=== PATIENT | female | born 1975 | race Caucasian/White ===

== ENCOUNTER 2016-10-05 22:21 | Emergency (ER) | payer BC ==
[2016-10-05] MEDS ORDERED: HYDROmorphone 1 MG/ML 1 ML SYRINGE IVP STA (23:12)
[2016-10-05] MEDS ORDERED: SODIUM CHLORIDE 0.9% 1,000 ML IV ONE (23:12)
[2016-10-05] MEDS ORDERED: KETOROLAC 30 MG/ML 1 ML VIAL IVP STA (23:13)
[2016-10-05] MEDS ORDERED: ONDANSETRON 4 MG/2 ML VIAL IVP STA (23:13)
--- NOTE | 2016-10-05 23:19 | ED ---
Abdominal Pain HPI - General Chief Complaint: Abdominal Pain Stated Complaint: flank pain Time Seen by Provider: 10/05/16 22:42 Source: patient, RN notes reviewed Mode of arrival: wheelchair Limitations: no limitations - History of Present Illness Initial Comments: Patient is a 41-year-old female presents to the emergency room for evaluation of right upper quadrant/right flank pain. Patient states pain began today. Patient's pain has been getting worse throughout the day. Patient states she can't even take a deep breath without significant pain. Patient states she has never had pain like this before. Patient states she has a history of cholecystectomy and 2 sections. Patient denies history of kidney stones. Patient denies pain or burning during urination, trouble urinating or blood in urine. Patient states she's been nauseous and vomited twice. Patient denies headache or dizziness. Patient denies fevers or chills. - Related Data Home Medications Medication Instructions Recorded Confirmed Dextroamphetamine/Amphetamine 30 mg PO DAILY PRN 10/05/16 10/05/16 [Adderall] Ranitidine HCl 300 mg PO DAILY 10/05/16 10/05/16 Previous Rx's Medication Instructions Recorded HYDROcodone/APAP 5-325MG [Magnolia 1 tab PO Q6HR PRN #15 tab 10/06/16 5-325] Ondansetron Odt [Zofran Odt] 4 mg PO Q8HR PRN #12 tab 10/06/16 Allergies Allergy/AdvReac Type Severity Reaction Status Date / Time Penicillins Allergy Rash/Hives Verified 10/05/16 22:31 Review of Systems ROS Statement: Those systems with pertinent positive or pertinent negative responses have been documented in the HPI. ROS Other: All systems not noted in ROS Statement are negative. Past Medical History Past Medical History: GERD/Reflux History of Any Multi-Drug Resistant Organisms: None Reported Past Surgical History: Section, Cholecystectomy, Hysterectomy Past Psychological History: ADD/ADHD Smoking Status: Former smoker Past Alcohol Use History: Occasional Past Drug Use History: None Reported General Exam - General Exam Comments Initial Comments: Sitting in exam room, tearful and anxious secondary to pain Limitations: no limitations General appearance: alert, in no apparent distress Head exam: Present: atraumatic, normocephalic, normal inspection Eye exam: Present: normal appearance ENT exam: Present: normal exam Neck exam: Present: normal inspection Respiratory exam: Present: normal lung sounds bilaterally. Absent: respiratory distress Cardiovascular Exam: Present: regular rate, normal rhythm, normal heart sounds GI/Abdominal exam: Present: soft, tenderness (RUQ), guarding (Voluntary guarding on palpating of her right upper quadrant), normal bowel sounds. Absent : distended, rebound, rigid Extremities exam: Present: normal inspection Back exam: Present: normal inspection, full ROM, CVA tenderness (R). Absent: CVA tenderness (L) Neurological exam: Present: alert, oriented X3, CN II-XII intact, normal gait Psychiatric exam: Present: normal affect, anxious Skin exam: Present: warm, dry, intact, normal color. Absent: rash Course Vital Signs 10/05/16 10/05/16 10/06/16 22:28 23:23 00:17 Temperature 98.0 F 97.5 F L 97.5 F L Pulse Rate 84 81 71 Respiratory 18 20 16 Rate Blood Pressure 149/70 125/69 106/61 O2 Sat by Pulse 100 100 100 Oximetry 10/06/16 10/06/16 01:12 01:46 Temperature 97.5 F L 97.7 F Pulse Rate 82 78 Respiratory 16 18 Rate Blood Pressure 110/58 145/75 O2 Sat by Pulse 99 97 Oximetry Medical Decision Making - Medical Decision Making Patient is a 41-year-old female since emergency room for evaluation of right upper quadrant pain. Labs show no concerning findings. Abdomen/pelvis CT: Mild constipation. Mild dilation of the biliary tree. The possibility of distal common bile duct obstruction should be considered and MRCP or ERCP would be helpful for further evaluation if clinically indicated (per radiology). Discussed with patient to follow-up with general surgeon for possible ERCP. Patient states she's having significantly better after pain medications. Agreed to send patient home with pain medications and antinausea medication until she can follow up. Patient states she understands everything that was discussed with her. Return parameters discussed. Case discussed with Dr. Clemente. - Lab Data Result diagrams: 10/05/16 23:10 10/05/16 23:10 Lab Results 10/05/16 10/05/16 10/05/16 Range/Units 23:10 23:10 23:10 WBC 10.1 (3.8-10.6) k/uL RBC 4.65 (3.80-5.40) m/uL Hgb 13.7 (11.4-16.0) gm/dL Hct 41.6 (34.0-46.0) % MCV 89.4 (80.0-100.0) fL MCH 29.5 (25.0-35.0) pg MCHC 33.0 (31.0-37.0) g/dL RDW 13.0 (11.5-15.5) % Plt Count 316 (150-450) k/uL Neutrophils % 71 % Lymphocytes % 21 % Monocytes % 5 % Eosinophils % 1 % Basophils % 0 % Neutrophils # 7.2 (1.3-7.7) k/uL Lymphocytes # 2.2 (1.0-4.8) k/uL Monocytes # 0.5 (0-1.0) k/uL Eosinophils # 0.1 (0-0.7) k/uL Basophils # 0.0 (0-0.2) k/uL Sodium 142 (137-145) mmol/L Potassium 3.9 (3.5-5.1) mmol/L Chloride 105 (98-107) mmol/L Carbon Dioxide 24 (22-30) mmol/L Anion Gap 13 mmol/L BUN 23 H (7-17) mg/dL Creatinine 0.80 (0.52-1.04) mg/dL Est GFR (MDRD) Af Amer >60 (>60 ml/min/1.73 sqM) Est GFR (MDRD) Non-Af >60 (>60 ml/min/1.73 sqM) Glucose 110 H (74-99) mg/dL Calcium 9.3 (8.4-10.2) mg/dL Total Bilirubin 0.7 (0.2-1.3) mg/dL AST 53 H (14-36) U/L ALT 52 (9-52) U/L Alkaline Phosphatase 46 (38-126) U/L Total Protein 7.2 (6.3-8.2) g/dL Albumin 4.3 (3.5-5.0) g/dL Amylase 56 (30-110) U/L Lipase 128 (23-300) U/L Urine Color Urine Appearance (Clear) Urine pH (5.0-8.0) Ur Specific [place] (1.001-1.035) Urine Protein (Negative) Urine Glucose (UA) (Negative) Urine Ketones (Negative) Urine Blood (Negative) Urine Nitrate (Negative) Urine Bilirubin (Negative) Urine Urobilinogen (<2.0) mg/dL Ur Leukocyte Esterase (Negative) Urine HCG, Qual Not Detected (Not Detectd) 10/05/16 Range/Units 23:10 WBC (3.8-10.6) k/uL RBC (3.80-5.40) m/uL Hgb (11.4-16.0) gm/dL Hct (34.0-46.0) % MCV (80.0-100.0) fL MCH (25.0-35.0) pg MCHC (31.0-37.0) g/dL RDW (11.5-15.5) % Plt Count (150-450) k/uL Neutrophils % % Lymphocytes % % Monocytes % % Eosinophils % % Basophils % % Neutrophils # (1.3-7.7) k/uL Lymphocytes # (1.0-4.8) k/uL Monocytes # (0-1.0) k/uL Eosinophils # (0-0.7) k/uL Basophils # (0-0.2) k/uL Sodium (137-145) mmol/L Potassium (3.5-5.1) mmol/L Chloride (98-107) mmol/L Carbon Dioxide (22-30) mmol/L Anion Gap mmol/L BUN (7-17) mg/dL Creatinine (0.52-1.04) mg/dL Est GFR (MDRD) Af Amer (>60 ml/min/1.73 sqM) Est GFR (MDRD) Non-Af (>60 ml/min/1.73 sqM) Glucose (74-99) mg/dL Calcium (8.4-10.2) mg/dL Total Bilirubin (0.2-1.3) mg/dL AST (14-36) U/L ALT (9-52) U/L Alkaline Phosphatase (38-126) U/L Total Protein (6.3-8.2) g/dL Albumin (3.5-5.0) g/dL Amylase (30-110) U/L Lipase (23-300) U/L Urine Color Yellow Urine Appearance Clear (Clear) Urine pH 6.5 (5.0-8.0) Ur Specific [place] 1.024 (1.001-1.035) Urine Protein Trace H (Negative) Urine Glucose (UA) Negative (Negative) Urine Ketones 1+ H (Negative) Urine Blood Negative (Negative) Urine Nitrate Negative (Negative) Urine Bilirubin Negative (Negative) Urine Urobilinogen 2.0 (<2.0) mg/dL Ur Leukocyte Esterase Negative (Negative) Urine HCG, Qual (Not Detectd) - Radiology Data Radiology results: report reviewed, image reviewed Disposition Clinical Impression: Abdominal pain, Biliary colic Disposition: HOME SELF-CARE Condition: Good Instructions: Abdominal Pain (ED) Additional Instructions: Take medications as needed. Please follow up with general surgeon for further evaluation. If any new symptom arises, symptoms worsen or fever develops, return to ER as soon as possible. Prescriptions: HYDROcodone/APAP 5-325MG [Magnolia 5-325] 1 tab PO Q6HR PRN #15 tab PRN Reason: Pain Ondansetron Odt [Zofran Odt] 4 mg PO Q8HR PRN #12 tab PRN Reason: Nausea Referrals: Cherelle aBilon DO [Primary Care Provider] - 1-2 days Kd Pelletier MD [STAFF PHYSICIAN] - 1-2 days Time of Disposition: 01:26
[2016-10-05 23:36] LABS: Basophils % (A) 0 %; CH 29.5; CHCM 33.1; Eosinophils # (A) 0.1 k/uL (0-0.7); Eosinophils % (A) 1 %; HCT 41.6 % (34.0-46.0); HDW 2.11; HGB 13.7 gm/dL (11.4-16.0); Luc # (Auto) 0.12; Luc % (Auto) 1; Lymphocytes # (A) 2.2 k/uL (1.0-4.8); Lymphocytes % (A) 21 %; MCH 29.5 pg (25.0-35.0); MCV 89.4 fL (80.0-100.0); Mean Platelet Volume 7.6; Monocytes # (A) 0.5 k/uL (0-1.0); Monocytes % (A) 5 %; Neutrophils # (A) 7.2 k/uL (1.3-7.7); Neutrophils % (A) 71 %; RBC 4.65 m/uL (3.80-5.40); WBC 10.1 k/uL (3.8-10.6); WBC (Perox) 10.79
[2016-10-05 23:39] LABS: Appearance,Urine Clear (Clear); Bilirubin,Urine Negative (Negative); Glucose,Urine (UA) Negative (Negative); Ketones,Urine 1+ (Negative); Leukocyte Esterase,Urine Negative (Negative); Nitrite,Urine Negative (Negative); PH, Urine 6.5 (5.0-8.0); Protein,Urine Trace (Negative); Specific Gravity,Urine 1.024 (1.001-1.035); UA Billing (MACRO vs. MICRO) CHEM
--- NOTE | 2016-10-05 23:47 | XR ---
EXAMINATION TYPE: XR KUB DATE OF EXAM: 10/05/2016 11:37 PM COMPARISON: NONE HISTORY: Right-sided abdominal pain TECHNIQUE: 2 views FINDINGS: Bowel gas pattern is normal. There is no sign of intestinal obstruction or pneumoperitoneum . Fecal pattern is normal. There are clips from cholecystectomy. Lung bases are clear. There are no p athologic calcifications over the kidneys. IMPRESSION: Nonacute abdomen.
[2016-10-05 23:51] LABS: ALT 52 U/L (9-52); AST 53 U/L (14-36); Alkaline Phosphatase 46 U/L (38-126); Amylase 56 U/L (30-110); Anion Gap 13 mmol/L; Blood Urea Nitrogen 23 mg/dL (7-17); Calcium 9.3 mg/dL (8.4-10.2); Carbon Dioxide 24 mmol/L (22-30); Chloride 105 mmol/L (98-107); Glucose 110 mg/dL (74-99); Non-African American GFR(MDRD) >60 (>60 ml/min/1.73 sqM); Potassium 3.9 mmol/L (3.5-5.1); Sodium 142 mmol/L (137-145); Total Bilirubin 0.7 mg/dL (0.2-1.3); Total Protein 7.2 g/dL (6.3-8.2)
[2016-10-06] MEDS ORDERED: RX INFO: IV CONTRAST WAS GIVEN 1 EACH MISC MISCELLANE PRN (00:15)
--- NOTE | 2016-10-06 01:06 | CT ---
EXAMINATION TYPE: CT abdomen pelvis w con DATE OF EXAM: 10/06/2016 12:45 AM COMPARISON: NONE HISTORY: Right flank pain CT DLP: 996 mGycm Automated exposure control for dose reduction was used. TECHNIQUE: Helical acquisition of images was performed from the lung bases through the pelvis. CONTRAST: Performed without Oral Contrast and with IV Contrast, patient injected with 100 mL of Omnipaque 300. FINDINGS: The lung bases are clear. There is no pleural effusion. Heart size is normal. There are clips from cholecystectomy. There is mild ectasia of the biliary tree. Common bile duct reagan sures 1.4 cm. Pancreas appears normal. Spleen appears normal. There is no adrenal mass. Kidneys show satisfactory contrast opacification. There is no hydronephrosi s. I see no intestinal wall thickening. There are no dilated loops. There is no free fluid. Hysterect karen is noted. I see no bony destructive process. Appendix is not seen. There is no sign of appendicit is. There is some retained fecal material in the right colon. IMPRESSION: MILD CONSTIPATION. MILD DILATION OF THE BILIARY TREE. THE POSSIBILITY OF DISTAL COMMON BILE DUCT OBSTRUCTION SHOULD BE C ONSIDERED AND MRCP OR ERCP WOULD BE HELPFUL FOR FURTHER EVALUATION IF CLINICALLY INDICATED.
[2016-10-06] MEDS ORDERED: HYDROmorphone 1 MG/ML 1 ML SYRINGE IVP STA (01:26)
[2016-10-06 01:47] VITALS: BP 145/75; PULSE 78; RESP 18; TEMP 97.7
== END 2016-10-06 01:56 | disposition home or self-care (01) ==
LOC: EC 22:21
DX: K80.50 Calculus of bile duct without cholangitis or cholecystitis without obstruction (principal); K59.00 Constipation, unspecified; K21.9 Gastro-esophageal reflux disease without esophagitis; F90.9 Attention-deficit hyperactivity disorder, unspecified type; Z88.0 Allergy status to penicillin; Z87.891 Personal history of nicotine dependence; Z79.899 Other long term (current) drug therapy
CPT/HCPCS: 99284; 96374; 96375 ×2; 96376; 96361; 36415; 80053; 82150; 83690; 85025; 81003; 81025; 74000; 74177; J2405; J1885; J1170 ×2; Q9967

== ENCOUNTER → 2016-10-25 | Outpatient (CLI) | payer BC ==
--- NOTE | 2016-10-25 11:27 | MR ---
EXAMINATION TYPE: MR MRCP DATE OF EXAM: 10/25/2016 9:49 AM COMPARISON: NONE HISTORY: RUQ pain, gallbladder removed Standard multiplanar, multisequence MRI departmental protocol Multiplanar, multisequence images of the biliary tree were acquired. FINDINGS: Common bile duct is patent to the duodenum. Biliary tree with intra and extrahepatic biliar y ducts appears normal. Residual cystic duct appears normal. No suspicious changes to suggest obstruc tion is evident. There appear to be scattered punctate hepatic cysts present. IMPRESSION: 1. Patent biliary tree. 2. Scattered small hepatic cysts.
== END | disposition home or self-care (01) ==
LOC: RADMRIMAIN 09:06
PROVIDERS: ATTEND Physician Assistant
DX: K76.89 Other specified diseases of liver (principal)
CPT/HCPCS: 74181

== ENCOUNTER 2016-11-17 10:39 | Day surgery (SDC) | payer BC ==
[2016-11-13 09:01] VITALS: BMI 25.0
[~2016-11-17 10:39] MED LIST: LACTATED RINGERS 1,000 ML IV SCH
[2016-11-17] MEDS ORDERED: LIDOCAINE 1% 20 ML VIAL (10MG/ML) FOR IV START INTRADERMA ONE (11:14)
[2016-11-17 11:17] VITALS: RESP 16; TEMP 97.4
[2016-11-17] MEDS ORDERED: LIDOCAINE 1% INJ 10MG/ML (20 ML MDV) ONE (11:57)
[2016-11-17] MEDS ORDERED: PROPOFOL 10 MG/ML 20 ML VIAL IV ONE (11:57)
--- NOTE | 2016-11-17 12:23 | P.PCN ---
Date of Procedure: 11/17/16 Procedure(s) Performed: Procedure: Esophagogastroduodenoscopy and biopsy. Preoperative diagnosis: Recurrent attacks of abdominal pain. Postoperative diagnosis: 1. Small sliding hiatal hernia with low-grade distal esophagitis. 2. Mild antral gastritis. 3. Multiple biopsies obtained from the duodenum, antrum and esophagus. Preparation and sedation: Was provided by anesthesia. Brief clinical history: The patient is a 41-year-old female who was evaluated in the office earlier this month regarding recurrent attacks of abdominal pains that she has had intermittently since 2008. These were getting more severe in the last 2-3 months. The patient went to the emergency room in October of this year and she was found to have slight elevation in her liver enzymes. An MRCP was performed last month and it was unremarkable. The patient had prior cholecystectomy. In 2011 an upper endoscopy and colonoscopy was performed during one of her attacks and she had evidence of a hiatal hernia and was treated with PPI with no improvement. This evaluation is to assess for peptic ulcer disease or other etiology. Procedure: With the patient on her left lateral decubitus position and after informed consent and adequate sedation, I passed the Olympus-GIF 160 video upper endoscope through the cricopharyngeus down the esophagus. GE junction was around 36 centimeters from the incisors and there was a small sliding hiatal hernia. The endoscope was then passed into the stomach which was insufflated with air and inspected in detail including the retroflex view in the cardia. There was some mottling and erythema in the antrum but no ulcers or erosions. Pyloric channel, duodenal bulb, post bulbar area and descending duodenum was essentially appeared within normal limits. Because of her symptoms , I obtained multiple biopsies from the duodenum, antrum and esophagus then the endoscope was withdrawn. The patient tolerated the procedure well. Plan: The patient was reassured. Will await biopsy results. She will follow- up in the office later this month and will make additional recommendations based on her course and biopsy results. Would keep you updated on her progress.
[2016-11-17 12:43] VITALS: BP 113/71; PULSE 71
== END 2016-11-17 12:43 | disposition home or self-care (01) ==
LOC: ORWHC2ENDO 10:39
DX: K29.50 Unspecified chronic gastritis without bleeding (principal); K44.9 Diaphragmatic hernia without obstruction or gangrene; K20.9 Esophagitis, unspecified; Z86.73 Personal history of transient ischemic attack (TIA), and cerebral infarction without residual deficits; Z79.1 Long term (current) use of non-steroidal anti-inflammatories (NSAID); Z79.899 Other long term (current) drug therapy; Z88.0 Allergy status to penicillin; Z91.040 Latex allergy status
CPT/HCPCS: 88305; 88342; 43239; J2001; J2704

== ENCOUNTER 2024-03-09 08:38 | Day surgery (SDC) | payer BC ==
[2024-03-09 09:13] VITALS: RESP 16; TEMP 97.9
[2024-03-09 09:59] VITALS: BP 121/79; PULSE 72
--- NOTE | 2024-03-09 11:16 | US ---
EXAMINATION TYPE: US FNA thyroid first lesion DATE OF EXAM: 03/09/2024 9:46 AM CLINICAL INDICATION:Female, 48 years old with history of E04.1 NONTOXIC SINGLE THYROID NODULE; , thyr oid nodule. COMPARISON: None ATTENDING: Dr. Deion Mojica PROCEDURE: Informed consent was obtained. The risks and benefits of the procedure were discussed with the patien t. The site was marked. Timeout procedure was performed Ultrasound imaging of the thyroid demonstrates left thyroid nodule The patient was prepped, draped in the usual sterile fashion, and locally anesthetized with 1% lidoca ine. Five fine needle aspiration were then performed with a 25 gauge needle. Samples were sent to [facility] pathology department for further analysis. Patient tolerated the procedure without incident and wa s sent home in stable condition. IMPRESSION: Successful ultrasound guided fine needle aspiration.
== END 2024-03-09 10:00 | disposition home or self-care (01) ==
LOC: RADPROMAIN 08:38
PROVIDERS: ATTEND Family Medicine
DX: E04.1 Nontoxic single thyroid nodule (principal)
CPT/HCPCS: 10005; 88173; 88305

== ENCOUNTER → 2025-04-12 | Outpatient (CLI) | payer BC ==
[2025-04-12 08:09] VITALS: BP 142/87; PULSE 94; RESP 16; TEMP 97.3
--- NOTE | 2025-04-12 13:39 | P.PAINPG ---
PQRS Measure Charge Sheet Comment: HISTORY OF PRESENT ILLNESS: A 49 yr old female presents today w severe and chronic neck and LBP > 1 yr secondary to C5-C6 ACDF, radiculopathy, spondylosis and facet arthropathy without myelopathy for evaluation. Pt states pain level is provoked at 8-9 /10 in intensity, constant, localized in the cervical and lumbar spine, predominantly axial, burning in character w occasional shooting pain towards the shoulders and down the back of the LEs. Pain is provoked by over activity. Pain is alleviated by PT x 6 wks which ended in early Apr 2025 due to new onset vertigo, physician guided exercises every other day since Apr 2025, medications, topical, repositioning and rest . Oswestry axial pain score at 31. Interventional procedures include BL TFESI L5-S1 x1 Medications include Neurontin, Lidoderm REVIEW OF ORGAN SYSTEMS: CONSTITUTIONAL: No fevers or chills. No recent weight loss. NEUROLOGICAL: + numbness and tingling along the distal extremities. No seizure disorders or headaches. MUSCULOSKELETAL: + pain PSYCHIATRIC: Denies current depression or suicidal thoughts. Physical Examinations : Constitutional : Cooperative , not in acute distress . Neurologic : Cranial nerve II to XII intact. No focal neurological deficits. Psychiatric : alert & oriented x 3. Matching mood & appropriate affect. Judgment & insight intact. Musculoskeletal : Cervical Spine +Incisional scar Motor strength in the deltoid and biceps: Normal right side. Normal Left side Motor strength biceps and the wrist extensors: Normal right side . Normal left side Motor strength in the triceps muscle: Normal right side. Normal left side Deep tendon reflexes: Normal at the biceps. Normal at Brachioradialis. Normal at triceps Vertebral body tenderness to deep palpation over Cervical facet loading test: positive bilaterally Spurling test: positive bilaterally Neck distraction test: positive bilaterally Kala sign: positive bilaterally Lumbar spine Motor strength lower extremities ,thigh and legs 5/5 Right side , 5/5 Left side Deep tendon reflexes : Normal Knee Jerk. Normal Ankle Jerk Vertebral body tenderness over L5 Alves Test positive BL L5-S1 Lumbar facet Loading Test: positive Right / positive Left Range of motion of the lumbar spine Flexion 30 degrees, extension 10 degrees Straight Leg Raise test: Left/ Right positive at degrees Jose test: positive right / positive left. Severe tenderness over the Sacroiliac joint on the Right / Left sides Gaenslen test: positive bilaterally Seated flexion test: positive bilaterally. Sacral spine : Severe tenderness over the Sacroiliac joint: right side / left side Range of motion: Flexion of the lumbar spine <60 degrees Range of motion: Extension of the lumbar spine <20 degrees Gaenslen's Test positive Jose test: positive right side / left side Thigh Thrust Test Sacral Thrust Test Imaging: MRI non contrast lumbar spine from 01/31/25 reviewed MRI non contrast cervical spine from 01/31/25 reviewed Assessment/ Plan : L3-S1 posterior disc bulges, L3-L5 spinal stenosis, C5-C6 ACDF Recommendation of BL TFESI L5-S1 #1. Risks, benefits of procedure discussed and patient verbalized understanding. Admits to anti- coagulant use or medical history of diabetes. Protocol for discontinuation/ continuation of medications donna procedure discussed. Use, side effects, adverse reactions, safe storage discussed. Opiate/ Narcotic agreement signed 03/06/25. Ample supply of Tyl #3 #60. All questions answered. I have spent greater than 30 minutes on patient care today. Dr Chaudhari was available by phone for the evaluation of this patient. The time was used to review the medical records including relevant urine studies and Prescription history (MAPs), review of the available imaging, evaluation and examination of the patient, coordination of care with the medical staff and if applicable referring physicians, as well as creation of the medical record - Pain Location Bilateral Lower Back Non-Pharmacological Interventions: Exercise, Heat, Home Exercise, Ice, Inactiv ity, Physical Therapy, Position/Reposition, Sitting, Stretching Pharmacological Interventions: PRN Medication, Scheduled Medication, Topical Medication PQRS Narrative: Smoking Status Former smoker Hx Alcohol Use (MH) No Home Medications: Ambulatory Orders Dextroamphetamine/Amphetamine [Adderall] 30 mg PO DAILY 10/05/16 Diclofenac Sodium [Voltaren] 75 mg PO BID 03/03/24 Omeprazole 40 mg PO DAILY 03/03/24 Acetaminophen-Codeine 300-30mg [Tylenol w/codeine #3] 1 tab PO BID PRN 30 Days #60 tablet 03/06/25 diazePAM [Valium] 10 mg PO DAILY 1 Days #1 tab 03/06/25 Controlled Substance Measures - Controlled Substance Measures Is patient prescribed a controlled substance at discharge?: No
== END ==
LOC: PNWHC3 07:34
PROVIDERS: ATTEND Specialist
DX: M51.17 Intervertebral disc disorders with radiculopathy, lumbosacral region (principal); M48.061 Spinal stenosis, lumbar region without neurogenic claudication; Z98.1 Arthrodesis status; Z91.040 Latex allergy status; Z88.0 Allergy status to penicillin; Z88.8 Allergy status to other drugs, medicaments and biological substances; Z87.891 Personal history of nicotine dependence
CPT/HCPCS: 99211

== ENCOUNTER 2025-04-21 07:51 | Day surgery (SDC) | payer BC ==
[2025-04-19 12:33] VITALS: BMI 27.3
[2025-04-21] MEDS ORDERED: LACTATED RINGERS 1,000 ML IV SCH (08:15)
[2025-04-21 08:20] VITALS: RESP 18; TEMP 97.5
[2025-04-21] MEDS ORDERED: DEXAMETHASONE SOD PHOSPHATE 10 MG/ML 1 ML VIAL ONE (09:34)
[2025-04-21] MEDS ORDERED: IOPAMIDOL M300 15ML VIAL ONE (09:34)
--- NOTE | 2025-04-21 10:02 | P.PCN ---
Description of Procedure: PREOPERATIVE DIAGNOSIS: 1-Lumbar radiculopathy . 2-lumbar degenerative disc disease. 3-lumbar spondylosis with lumbar facet arthropathy without myelopathy POSTOPERATIVE DIAGNOSIS: 1-lumbar radiculopathy. 2-lumbar degenerative disc disease. 3-lumbar spondylosis with facet arthropathy without myelopathy PROCEDURE 1. Transforaminal epidural steroid injection under fluoroscopic guidance at BILATERAL L5-S1 level. (Fluoroscopy images stored on file in the radiology Department ) 2. Lumbar epidurogram . ANESTHESIA: Local with 1% lidocaine 5 ml. subcutaneously. Continuous pulse ox, EKG, blood pressure and verbal communication was maintained with the patient. EBL: Minimal PROCEDURE INDICATION: The patient with low back pain and radiculopathy symptoms unresponsive to conservative treatment. The patient was seen and identified in the preoperative area. Risks, benefits, complications, and alternatives were discussed with the patient. The patient agreed to proceed with the procedure and signed the consent. IV was started, and vital signs were stable. PROCEDURE DESCRIPTION / TECHNIQUE: After getting consent, patient was taken to the OR and time out was completed. The patient was placed in the prone position on procedure table and a pillow was placed under the abdomen to reduce lumbar lordosis. The lumbosacral area was prepped and draped in the usual sterile fashion. Critical pause was taken. After injecting 5 mL of plain 1% lidocaine subcutaneously, under oblique view of the fluoroscope, a 22-gauge spinal needle was introduced under the tunnel view of the fluoroscope on the RIGHT side and the needle was advanced so that the tip of the needle was at the posterior inferior quadrant of the intervertebral for amen at the lateral view of the fluoroscope and in the lateral third of the facet column in the AP view of the fluoroscope. Negative CSF, negative blood, negative paresthesia. After needle position confirmation by AP and cross table lateral view, 3 mL of Isovue-M 200 contrast was injected under continuous fluoroscope. No contrast was noted in the intrathecal or intravascular space. The epidurogram was noted. Again after repeated negative aspiration 2.5 mL solution was injected which consists 1 mL of normal saline mixed with 1.5 mL of 15 mg dexamethasone. Needle was removed . Same procedure was repeated at the LEFT side at same level , using contrast under continuous fluoroscopy and using same amount of dexamethasone. At the end of the procedure, skin was cleansed, and bandages were applied. DISPOSITION / PLANS: No complication. The patient tolerated the procedure well. The patient was placed in a supine position and transferred to the recovery area in a stable condition for observation. There was no evidence of lower extremity motor or sensory deficit after the procedure. Patient was discharged from the recovery room after meeting discharge criteria. Home discharge instru ctions were given to the patient by the staff. The patient was reexamined prior to discharge.
--- NOTE | 2025-04-21 10:07 | FL ---
EXAMINATION TYPE: FL guided pain mgmt statistic DATE OF EXAM: 04/21/2025 CLINICAL HISTORY: Low back pain. TECHNIQUE: Fluoroscopy. COMPARISON: None. FINDINGS: TRANSFORAMINAL EPI STEROID INJ FL TIME- 1:30 DAP- 0.11014 DR. BLACK/JOYCELYN/FRANK There are 3 images submitted. [facility], Workstation: [facility], 04/21/2025 10:04 AM
[2025-04-21 10:21] VITALS: BP 118/74; PULSE 92
== END 2025-04-21 10:24 | disposition home or self-care (01) ==
LOC: ORPAIN 07:51
PROVIDERS: ATTEND Pain Medicine Interventional Pain Medicine
DX: M47.26 Other spondylosis with radiculopathy, lumbar region (principal); M51.16 Intervertebral disc disorders with radiculopathy, lumbar region; Z88.0 Allergy status to penicillin; Z91.040 Latex allergy status; Z88.6 Allergy status to analgesic agent
CPT/HCPCS: 64483; J1100; Q9967